=== PATIENT | male | born 1985 | race Caucasian/White ===

== ENCOUNTER 2016-07-10 21:42 | Emergency (ER) | payer SELFPAY ==
[~2016-07-10] VITALS: Ht 180.3 cm; Wt 121.3 kg
[2016-07-10 21:50] VITALS: BP 130/89; PULSE 80; RESP 16; TEMP 98.1; O2SAT 98
--- NOTE | 2016-07-10 22:03 | PD ---
HPI . left eye brown laceration earlier today Chief Complaint: Laceration/Skin Injury Time Seen by Provider: 22:02 Travel History International Travel<30 days: No Contact w/Intl Traveler<30days: No Traveled to known affect area: No History of Present Illness HPI Year-old male with no significant past history here with a laceration to his left eyebrow. Patient was playing basketball when he was kneed in the eyebrow. He denies any visual changes. He has no other complaints. He is accompanied by his . Discussed the potential scarring and repair versus plastic surgery consultation. They have opted for repair here in the ED. [facility] Past Medical History Medical History: Denies Significant Hx Tetanus Vaccination: Unknown Influenza Vaccination: No Past Surgical History Surgical History: No Previous Surgery Social History Alcohol Use: Yes (OCCAS) Tobacco Use: No Substance Use: No Allergies-Medications (Allergen,Severity, Reaction): Coded Allergies: No Known Allergies (Unverified , 07/10/16) Reported Meds & Prescriptions Reported Meds & Active Scripts Active No Active Prescriptions or Reported Medications Review of Systems General / Constitutional: No: Fever Eyes: No: Visual changes HENT: No: Headaches Cardiovascular: No: Chest Pain or Discomfort Respiratory: No: Shortness of Breath Gastrointestinal: No: Abdominal Pain Genitourinary: No: Dysuria Musculoskeletal: No: Pain Skin: Positive Other (left eyebrow laceration), No Rash Neurologic: No: Weakness Psychiatric: No: Depression Endocrine: No: Polydipsia Hematologic/Lymphatic: No: Easy Bruising Physical Exam Narrative GENERAL: AAO x 3, no acute distress, Well-nourished, well-developed patient. SKIN: Warm and dry. No visible rashes or bruising. HEAD: Normocephalic and atraumatic. EYES: No scleral icterus. No injection or drainage. EOM intact, PERRLA. There is T-shaped laceration through the left eyebrow, approximately 2.5 cm. ENT: No nasal drainage noted. Mucous membranes pink. Airway patent. NECK: Supple, trachea midline. No JVD. CARDIOVASCULAR: Regular rate and rhythm without murmurs, gallops, or rubs. RESPIRATORY: Breath sounds equal bilaterally. No accessory muscle use. No rhonchi or rales. GASTROINTESTINAL: Abdomen soft, non-tender, nondistended. EXTREMITIES: No cyanosis or edema. BACK: Nontender without obvious deformity. No CVA tenderness. PSYCH: AAO x 3, normal affect. Data Data Last Documented VS Vital Signs Date Time Temp Pulse Resp B/P Pulse Ox O2 Delivery O2 Flow Rate FiO2 07/10/16 21:50 98.1 80 16 130/89 98 Orders Lidocaine 1% Inj (50 Ml) (Xylocaine 1% I (07/10/16 22:15) Tetanus/Diphtheria Tox Adult (Tetanus/Di (07/10/16 22:15) MDM Medical Decision Making Medical Screen Exam Complete: Yes Emergency Medical Condition: Yes Differential Diagnosis laceration, abrasion, less likely head injury Narrative Course 30 Year-old male with no significant past history here with a laceration to his left eyebrow. Patient was playing basketball when he was kneed in the eyebrow. He denies any visual changes. He has no other complaints. He is accompanied by his . Discussed the potential scarring and repair versus plastic surgery consultation. They have opted for repair here in the ED. Patient seen and examined. We discussed repair of this laceration versus consultation with plastic surgery. Together that the patient and have opted for. In the ED. [address] Porras supervised and saw the end product. Tetanus shot administered. Patient tolerated both well without any consultations. No antibiotic necessary. Discussed that this will need to be removed in 5-7 days. Discuss infection and signs of infection. Patient verbalized understanding of instructions, questions were answered, and thanked me for their care. I advised them if their condition worsens, please return to the nearest emergency room for further care. Procedures Procedure Narrative LACERATION LOCATION: left eyebrow LENGTH: T shaped 2.5 cm NUMBER OF STITCHES/MARTINEZ:8 REPAIR: The area of the laceration was prepped with Betadine and sterilely draped. The laceration was infiltrated with 1% lidocaine. The wound was copiously irrigated and explored without evidence of foreign body, tendon injury or neurovascular injury. The wound was closed using 6-0 Prolene. This was a single layer repair. A sterile dressing was applied. The patient was advised to keep the dressing clean and dry. Patient tolerated the procedure well. Diagnosis Primary Impression: Forehead laceration Qualified Code: S01.81XA - Forehead laceration, initial encounter Patient Instructions: General Instructions, Laceration (ED) Additional Instructions: Please return to emergency department if your symptoms return or worsen. Follow up with your primary care provider. Keep area free for moisture as this can hinder healing. Wash with soap and water daily. These sutures (8) will need to be removed in 5-7 days. You're more than welcome to return here, or follow-up to primary care provider for removal. Royal for signs of infection which include warmth, redness, purulent drainage , swelling or streaking. If any of these occur, please return to the nearest emergency department. Med/Other Pt SpecificInfo: No Meds Exist/No RX given Scripts No Active Prescriptions or Reported Meds Disposition: 01 DISCHARGE HOME Condition: Stable Apurva Throne Jul 10, 2016 22:03
[2016-07-10] MEDS ORDERED: LIDOCAINE HCL 1% 50 ML VIAL INFIL ONE (22:15)
[2016-07-10] MEDS ORDERED: TETANUS/DIPHTHERIA TOXOID ADULT 0.5 ML VIAL IM ONE (22:15)
== END 2016-07-10 23:11 | disposition home or self-care (01) ==
LOC: PHEFT 21:42
DX: S01.112A Laceration without foreign body of left eyelid and periocular area, initial encounter (principal); W50.0XXA Accidental hit or strike by another person, initial encounter; Y93.67 Activity, basketball; Y92.9 Unspecified place or not applicable; Z23 Encounter for immunization
CPT/HCPCS: 12011; 90471; 90714